=== PATIENT | female | born 1975 | race Caucasian/White ===

== ENCOUNTER 2017-04-07 10:52 | Emergency (ER) | payer MEDICAID ==
--- NOTE | 2017-04-07 11:06 | CPEKG ---
Heart Rate: 82 RR Interval: 732 P-R Interval: 152 QRSD Interval: 88 QT Interval: 364 QTC Interval: 425 P [place]: 44 QRS [place]: 3 T Wave [place]: 7 EKG Severity - ABNORMAL ECG - EKG Impression: SINUS RHYTHM EKG Impression: NONSPECIFIC T ABNORMALITIES, ANTERIOR LEADS Electronically Signed By: Layla Guan 07-Apr-2017 15:12:54
--- NOTE | 2017-04-07 11:47 | EDPHY ---
H & P Time Seen by Provider: 04/07/17 10:56 HPI/ROS: CHIEF COMPLAINT: Rapid heart rate HISTORY OF PRESENT ILLNESS: The patient is a 41 y/o female with a history of SVT, arriving via EMS who complains of a sudden onset of rapid heart rate at 09:20, 2 hours ago. She has taken Metoprolol everyday for the past 2-3 years for her SVT. Her last SVT episode was 4-5 months ago. She took an extra Metoprolol today when her symptoms began. While en route to the hospital, EMS had her perform 2 Vagal maneuvers, which corrected her heart rate. Denies fever, paresthesias, shortness of breath or other pertinent symptoms. REVIEW OF SYSTEMS: Aside from elements discussed in the HPI, a comprehensive 10-point review of systems was reviewed and is negative. Past Medical/Surgical History: PMH: SVT Social History: , works for [employer] Smoking Status: Never smoked Physical Exam: General Appearance: Alert, no distress Eyes: Pupils equal and round, no conjunctival pallor or injection ENT, Mouth: Mucous membranes moist Neck: Normal inspection Respiratory: Lungs are clear to auscultation Cardiovascular: Regular rate and rhythm Gastrointestinal: Abdomen is soft and non- tender Neurological: A&O, nonfocal, normal gait Skin: Warm and dry, no rash Extremities: Nontender, no pedal edema Psychiatric: Mood and affect normal Constitutional: Initial Vital Signs Temperature (C) 37 C 04/07/17 11:02 Heart Rate 83 04/07/17 11:02 Respiratory Rate 17 04/07/17 11:02 Blood Pressure 116/80 04/07/17 11:02 O2 Sat (%) 94 04/07/17 11:02 O2 Delivery Mode Room Air O2 (L/minute) 2 Allergies/Adverse Reactions: No Known Allergies Allergy (Unverified 04/07/17 11:02) Home Medications: Medication Instructions Recorded Metoprolol Tartrate 04/07/17 Simvastatin 04/07/17 Medical Decision Making - Diagnostics EKG Interpretation: EKG interpreted by me reveals normal sinus rhythm with rate of 82, normal axis, normal intervals, ST and T segments normal. Interpretation: normal EKG Imaging: I viewed and interpreted images myself ED Course/Re-evaluation: The patient is a 41 y/o female arriving via EMS with a history of SVT, who presents after an episode of SVT. She was observed in the emergency department and remained normal sinus rhythm throughout. Reassessed patient and discussed normal EKG findings. Return precautions provided; patient is comfortable with this plan. Differential Diagnosis: Differential diagnosis includes does not limited to ventricular dysrhythmia, atrial fibrillation, sinus tachycardia, thyrotoxicosis. Departure - Departure Disposition: Home, Routine, Self-Care Clinical Impression: Supraventricular tachycardia Condition: Good Instructions: Supraventricular Tachycardia (ED) Additional Instructions: 1. Follow-up with your primary doctor within 72 hours, you have been referred to Dr. Correia if you do not have one. 2. Return to the Emergency Department for fever, chest pain, shortness of breath , increasing pain or other worsening of condition. Follow up with a dormitory supervisor for further testing, as soon as possible, within one week. Referrals: Marilyn Correia MD [Medical Doctor] - As per Instructions Report Scribed for: Layla Guan Report Scribed by: Christine Navarro Date of Report: 04/07/17 Time of Report: 11:39 Physician Review and Approval Statement: 04/07/17 11:39 Portions of this note were transcribed by a medical record transcriber. I personally performed a history, physical exam, medical decision making, and confirmed accuracy of information the transcribed note.
[2017-04-07 12:03] VITALS: BP 111/79; PULSE 76; RESP 15; TEMP 98.8; O2SAT 95
== END 2017-04-07 12:03 | disposition home or self-care (01) ==
DX: I47.1 Supraventricular tachycardia (principal)

== ENCOUNTER 2018-01-17 12:38 | Emergency (ER) | payer MEDICAID ==
--- NOTE | 2018-01-17 12:41 | EDPHY ---
H & P Time Seen by Provider: 01/17/18 12:41 - Medical/Surgical History Hx Asthma: No Hx Chronic Respiratory Disease: No Hx Diabetes: No Hx Cardiac Disease: No Hx Renal Disease: No Hx Cirrhosis: No Hx Alcoholism: No Hx HIV/AIDS: No Hx Splenectomy or Spleen Trauma: No Other PMH: SVT, - Social History Smoking Status: Never smoked Constitutional: Initial Vital Signs Temperature (C) 36.9 C 01/17/18 12:43 Heart Rate 162 H 01/17/18 12:43 Respiratory Rate 20 01/17/18 12:43 Blood Pressure 124/97 H 01/17/18 12:43 O2 Sat (%) 97 01/17/18 12:43 O2 Delivery Mode Room Air Allergies/Adverse Reactions: No Known Allergies Allergy (Verified 01/17/18 12:46) Home Medications: Medication Instructions Recorded Metoprolol Tartrate 04/07/17 Simvastatin 04/07/17 Levothyroxine 01/17/18 Medical Decision Making ED Course/Re-evaluation: CHIEF COMPLAINT: SVT HISTORY OF PRESENT ILLNESS: The patient is a 42 y/o female with a history of SVT arriving via EMS complaining of a rapid heart rate today. She has had numerous episodes of SVT for which she takes Metoprolol for. She last took 100 mg Metoprolol this morning. Prio SVT episodes have converted both with Adenosine and spontaneously in the past. Today she developed SVT again and was unable to spontaneously convert it. Denies headache, shortness of breath, abdominal pain, urinary or bowel complaints, nausea, vomiting, numbness, paresthesias, fever. REVIEW OF SYSTEMS: A 10 point review of systems was performed and is negative with the exception of the elements mentioned in the history of present illness. PHYSICAL EXAM: HR, BP, O2 Sat, RR. Temp noted General Appearance: Alert, well hydrated, appropriate, and non-toxic appearing. Head: Atraumatic without scalp tenderness or obvious injury Eyes: Pupils equal, round, reactive to light and accommodation, EOMI, no trauma , no injection. Ears: Clear bilaterally, no perforation, normal landmarks Nose: Atraumatic, no rhinorrhea, clear. Throat: There is no erythema or exudates, no lesions, normal tonsils, mucus membranes moist. Neck: Supple, nontender, no lymphadenopathy. Respiratory: No retractions, no distress, no wheezes, and no accessory muscle use. Lungs are clear to auscultation bilaterally. Cardiovascular: Tachycardic, no murmurs, rubs, or gallops. Bilateral carotid, radial, dorsalis pedis, and posterior tibial pulses intact. Good capillary refill all extremities. Gastrointestinal: Abdomen is soft, nontender, non-distended, no masses, no rebound, no guarding, no peritoneal signs. Musculoskeletal: Normal active ROM of all extremities, atraumatic. Neurological: Alert, appropriate, and interactive. The patient has normal DTRs and non-focal cranial nerves, motor, sensory, and cerebellar exam. Skin: No rashes, good turgor, no nodules on palpation. Past medical history: SVT, followed by a drill setup operator at [facility] Past surgical history: Family history: Denies Social history: at bedside, employed at [employer], lives in [place] DIAGNOSTICS/PROCEDURES/CRITICAL CARE TIME: EKG: The 12 lead EKG was interpreted by myself as SVT with a rate of 162, borderline T abnormalities in the anterior leads, borderline prolonged QT intervals. See hard copy and/or "tracemaster" electronic copy for interpretation. Repeat EKG: EKG: The 12 lead EKG was interpreted by myself as sinus rhythm with a rate of 85, flipped T waves which is unchanged from an EKG on 04/07/17. See hard copy and/or "tracemaster" electronic copy for interpretation. DIFFERENTIAL DIAGNOSIS: The differential diagnosis for the patient's narrow complex tachycardia included but was not limited to various causes of sinus tachycardia such as dehydration and medicines, SVT, atrial flutter, atrial fibrillation, pulmonary causes. MEDICAL DECISION MAKING: The patient is a 42 y/o female with a history of SVT arriving via EMS presenting with a rapid heart rate today which she was unable to convert on her own. On exam she is tachycardic. EKG ordered; 1L IV NS administered. 1244: I interpreted patient's EKG as SVT with a rate of 162. 1306: Reassessed patient, her heart rate is 159 bpm 1307: 12 mg IV Adenosine given 1308: Patient has converted out of SVT, her heart rate is 103 bpm. 5mg IV Lopressor administered. 1314: Patient's Troponin is 0; repeat EKG ordered. 1318: I interpreted patient's repeat EKG as sinus rhythm with a rate of 85. There are flipped T waves which is unchanged from an EKG on 04/07/17. 1340: Reassessed patient, her heart rate remains in a sinus rhythm with a rate of 80. I have advised her to follow up with her drill setup operator in the next several days. Return precautions provided; patient is comfortable with this plan. - Data Points Laboratory Results: 01/17/18 12:51 POC Troponin I 0.00 ng/mL ng/mL (0.00-0.08) Medications Given: Discontinued Medications Adenosine (Adenosine) 12 mg IVP EDNOW ONE Stop: 01/17/18 13:10 Last Admin: 01/17/18 13:09 Dose: 12 mg Metoprolol Tartrate (Lopressor Injection) 5 mg IVP EDNOW ONE Stop: 01/17/18 13:13 Last Admin: 01/17/18 13:13 Dose: 5 mg Point of Care Test Results: Chemistry 01/17/18 12:51 POC Troponin I 0.00 ng/mL ng/mL (0.00-0.08) Departure - Departure Disposition: Home, Routine, Self-Care Clinical Impression: Supraventricular tachycardia Condition: Good Instructions: Supraventricular Tachycardia (ED) Additional Instructions: 1. Follow up with your drill setup operator within the next 2-3 days. 2. Continue taking Metoprolol as prescribed. 3. Return to the Emergency Department for fever, chest pain, shortness of breath , increasing pain or other worsening of condition. Referrals: Patient,NotPresent [Primary Care Provider] - As per Instructions Chucky Cochran MD [Medical Doctor] - As per Instructions Report Scribed for: Reginald Perez Report Scribed by: Christine Navarro Date of Report: 01/17/18 Time of Report: 12:41
--- NOTE | 2018-01-17 12:48 | CPEKG ---
Heart Rate: 162 RR Interval: 370 QRSD Interval: 84 QT Interval: 292 QTC Interval: 480 P [place]: 0 QRS [place]: -5 T Wave [place]: 43 EKG Severity - BORDERLINE ECG - EKG Impression: SINUS TACHYCARDIA EKG Impression: BORDERLINE T ABNORMALITIES, ANTERIOR LEADS Electronically Signed By: Reginald Perez 17-Jan-2018 13:15:52
[2018-01-17] MEDS ORDERED: ADENOSINE 6 MG/2 ML VIAL ONE (13:02)
[2018-01-17] MEDS ORDERED: ADENOSINE 6 MG/2 ML VIAL IVP ONE (13:09)
[2018-01-17] MEDS ORDERED: METOPROLOL TARTRATE 5 MG/5 ML INJ ONE (13:09)
[2018-01-17] MEDS ORDERED: METOPROLOL TARTRATE 5 MG/5 ML INJ IVP ONE (13:12)
--- NOTE | 2018-01-17 13:25 | CPEKG ---
Heart Rate: 85 RR Interval: 706 P-R Interval: 148 QRSD Interval: 84 QT Interval: 360 QTC Interval: 428 P [place]: 38 QRS [place]: 14 T Wave [place]: 12 EKG Severity - ABNORMAL ECG - EKG Impression: SINUS RHYTHM EKG Impression: NONSPECIFIC T ABNORMALITIES, ANTERIOR LEADS Electronically Signed By: Solo Hall 19-Jan-2018 07:39:08
[2018-01-17 13:48] VITALS: BP 106/81
== END 2018-01-17 13:45 | disposition home or self-care (01) ==
LOC: EDUNIT#
DX: I47.1 Supraventricular tachycardia (principal)
CPT/HCPCS: 84484-PO; 96374; J0153